=== PATIENT | male | born 1950 | race Caucasian/White ===

== ENCOUNTER → 2017-09-07 | Day surgery (SDC) | payer OTHER ==
[~2017-09-07] VITALS: Ht 167.6 cm; Wt 54.4 kg
[~2017-09-07] MED LIST: ACETAMINOPHEN325 M1 PO; ADULT LOW DOSE81 MG PO; ADVIL100 M2 PO; ASPIRIN81 M2 PO; CHANTIX1 MG PO; COZAAR 25 MG TA25 M1 PO; LIPITOR10 MG PO; LISINOPRIL20 MG PO; METOPROLOL SUCC50 MG PO; PEPCID20 MG PO; PLAVIX 75 MG TA75 MG PO; PRAVACHOL40 MG PO; PRAVASTATIN SOD20 MG PO; ZPAK PO
--- NOTE | ~2017-09-07 | PATH ---
[facility] [place] [address] PATHOLOGY RPT PROCEDURE Name: LAITH VILLARREAL Room #: REG [facility] M.R.#: [id number] Admission: 09/07/17 Date of : 46 Discharge: Report #: [id number] Path Case #: [id number] [facility] Accession Number: [id number] . 01 Material submitted: . PART A: DUODENUM BIOPSY PART B: GASTRITIS PART C: ASCENDING COLON POLYP BIOPSY PART D: SIGMOID COLON POLYP BIOPSY . 01 Clinical history: . Pre-OP DX: Abdominal pain, weight loss, positive cologuard, family HX colon cancer, anorexia Post-OP DX: Gastritis, colon polyps, diverticulosis . 02 Diagnosis: A. Small bowel, duodenum, rule out sprue, endoscopic biopsy: - No diagnostic abnormalities present. - Negative for villous blunting or increase in intraepithelial lymphocytes. . B. Gastric mucosa, gastritis, endoscopic biopsy: - Mild reactive gastropathy. - Negative for intestinal metaplasia or atrophy. - Negative for Helicobacter pylori (properly controlled immunohistochemical stain performed). . C. Polyp, ascending colon polyp, endoscopic biopsy: - Tubular adenoma. - Negative for high-grade dysplasia. . D. Polyp, sigmoid colon polyp, endoscopic biopsy: - Tubular adenoma. - Negative for high-grade dysplasia. (IUV:liyah; 09/08/2017) QMS/09/08/2017 . 02 Electronically signed: . Manuela Liz MD, Pathologist NPI- [id number] . 01 Gross description: . A. Received in formalin labeled "VillarrealWilfredy, duodenum, rule out sprue," are 4 segments of gerardo soft tissue measuring 1.3 x 0.8 x 0.2 cm in aggregate dimensions and ranging from 0.3 to 0.5 cm in maximum dimension. The specimen is submitted entirely in cassette A1. . [address] [address] PATHOLOGY RPT PROCEDURE Name: LAITH VILLARREAL [facility] [id number] Admission: 09/07/17 Date of : 46 Discharge: Report #: [id number] Path Case #: [id number] B. Received in formalin labeled "VillarrealWilfredy, gastritis, rule out H. pylori," are 2 segments of gerardo soft tissue measuring 1.0 x 0.3 x 0.3 cm in aggregate dimensions and measuring 0.5 cm each in maximum dimension. The specimen is submitted entirely in cassette B1. . C. Received in formalin labeled "Laith Villarreal, ascending colon polyp BX," is a single segment of gerardo soft tissue measuring 0.3 cm in maximum dimension. The specimen is entirely submitted in cassette C1. . D. Received in formalin labeled "Laith Villarreal, sigmoid colon polyp BX," is a single segment of gerardo soft tissue measuring 0.4 cm in maximum dimension. The specimen is entirely submitted in cassette D1. (TSD; 09/07/2017) TOB/TOB . 02 Microscopic: . . . 02 Pathologist provided ICD-10: K31.9, D12.2, D12.5 . 02 CPT . 412550, 668334, 150012, 914873, [id number] Performed at: [address] [id number] MD Marlon Reynoso MD Phone: [phone] Performed at: [address] [id number] MD Manuela Liz MD Phone: [phone]
--- NOTE | ~2017-09-07 | P ---
[facility] [address] [address] PROCEDURE REPORT Name: LAITH VILLARREAL Room #: REG [facility]..#: [id number] Admission: 09/07/17 Attend Phys: Tom Robertson Discharge: Date of : 46 Report #: [id number] THIS REPORT FOR: //name// CC: Graham Agee MD DATE OF SERVICE: 09/07/2017 PROCEDURE PERFORMED: Colonoscopy with biopsies. HISTORY OF PRESENT ILLNESS: The patient is a 67-year-old male with a history of recent Cologuard test being positive. He denies any obvious bright red blood per rectum or melena. He does have a family history of colon cancer in a brother diagnosed in his 50s. The patient has never had a colonoscopy before. PROCEDURE: The risks and benefits of the procedure were explained to the patient, those risks including, but not limited to bleeding, perforation, and the risk of sedation. He understood these risks and gave informed consent. Sedation was given using propofol per anesthesia. Next, a digital rectal exam was initially performed, which was normal. Next, using a standard Olympus colonoscope, the scope was placed in the patient's anus and advanced under direct vision to the cecum. The overall prep was excellent. The cecum and ileocecal valve were normal in appearance. Terminal ileum was intubated and normal in appearance. In the ascending colon, a 3-mm sessile polyp was noted. This was removed with cold forceps, otherwise normal. The transverse and descending colon were normal. Multiple diverticula were noted in the sigmoid colon. Also noted, there was a 5-mm sessile polyp. This was also removed with cold forceps. The rectal mucosa was normal. On retroflexion, no abnormalities were noted. The scope was then withdrawn and the procedure terminated. The patient tolerated the procedure well. IMPRESSION: 1. Two small colonic polyps. 2. Sigmoid diverticulosis. 3. Otherwise, normal colonoscopy. RECOMMENDATIONS: 1. Await biopsy results. 2. Repeat colonoscopy in 5 years. 3. If the patient has continued weight loss, consider CT scan of the abdomen and pelvis. [facility] [address] [place] [address] PROCEDURE REPORT Name: LAITH VILLARREAL Room #: REG [facility]..#: [id number] Admission: 09/07/17 Attend Phys: Tom Robertson Discharge: Date of : 46 Report #: [id number] Thank you for allowing me to participate in his care. By: 1221 1628 Kel Trujillo MD /nt
--- NOTE | ~2017-09-07 | P ---
[facility] [place] [address] [address] [place] [address] PROCEDURE REPORT Name: LAITH VILLARREAL Room #: REG [facility] M..#: [id number] Admission: 09/07/17 Attend Phys: Tom Robertson Discharge: Date of : 46 Report #: [id number] THIS REPORT FOR: //name// CC: Graham Agee MD DATE OF SERVICE: 09/07/2017 PROCEDURE PERFORMED: Upper endoscopy with biopsies. HISTORY OF PRESENT ILLNESS: The patient is a 67-year-old male who presents today for a colonoscopy. He has had weight loss, decreased appetite and a positive Cologuard test. He also has intermittent heartburn symptoms. He was placed on Pepcid recently, which has been helpful. We discussed proceeding with an upper endoscopy as well today due to his weight loss and other symptoms and he agreed. PROCEDURE: The risks and benefits of the procedure were explained to the patient, those risks including, but not limited to bleeding, perforation, and the risk of sedation. He understood these risks and gave informed consent. Sedation was given using propofol per anesthesia. Next, using a standard Olympus upper endoscope, the scope was placed in the patient's mouth and advanced under direct vision through the esophagus, stomach and into the second portion of the duodenum. The esophagus was normal throughout. The GE junction was normal. There was a mild diffuse gastritis. Biopsies were obtained to rule out H. pylori. The pylorus was normal and patent. The duodenal bulb, first and second portion were all normal. Due to the patient's symptoms, biopsies were obtained to rule out the possibility of celiac sprue. The scope was then withdrawn and the procedure terminated. The patient tolerated the procedure well. IMPRESSION: 1. Mild gastritis. 2. Otherwise, normal upper endoscopy. RECOMMENDATIONS: 1. Await biopsy results. 2. We will proceed with colonoscopy next today. Thank you for allowing me to participate in his care. By: 1150 1623 Kel Trujillo MD /nt
== END | disposition home or self-care (01) ==
LOC: GI 09:32
DX: D12.2 Benign neoplasm of ascending colon (principal); D12.5 Benign neoplasm of sigmoid colon; K31.9 Disease of stomach and duodenum, unspecified; Z80.0 Family history of malignant neoplasm of digestive organs; K57.30 Diverticulosis of large intestine without perforation or abscess without bleeding; F17.210 Nicotine dependence, cigarettes, uncomplicated; I10 Essential (primary) hypertension; E78.5 Hyperlipidemia, unspecified; G47.33 Obstructive sleep apnea (adult) (pediatric); K21.9 Gastro-esophageal reflux disease without esophagitis; Z98.890 Other specified postprocedural states

== ENCOUNTER → 2019-04-26 | Outpatient (CLI) | payer OTHER | LOC: SJCVC 10:28 | DX: I35.0 Nonrheumatic aortic (valve) stenosis (principal); I10 Essential (primary) hypertension; E78.5 Hyperlipidemia, unspecified; Z79.899 Other long term (current) drug therapy; G44.89 Other headache syndrome; J44.9 Chronic obstructive pulmonary disease, unspecified ==

== ENCOUNTER 2019-08-21 10:48 | Emergency (ER) | payer OTHER ==
[~2019-08-21] VITALS: Ht 170.2 cm; Wt 63.0 kg
[2019-08-21] MEDS ORDERED: MICARDIS40 MG PO (10:53)
[2019-08-21 11:33] LABS: ABSOLUTE NEUTROPHILS 4.6 thou/uL (1.4-8.2); BASOPHILS 0.6 % (0.0-2.0); EOSINOPHILS 0.6 % (0.0-3.0); HEMATOCRIT 44.3 % (42.0-52.0); HEMOGLOBIN 15.2 gm/dL (14.0-18.0); LYMPHOCYTES 22.4 % (24.0-44.0); MCH 32.3 pg (26.0-34.0); MCHC 34.3 g/dL (28.0-37.0); MONOCYTES 7.8 % (1.0-8.0); PLATELET COUNT 239 thou/uL (150-400); POLYS 68.6 % (36.0-66.0); RBC 4.71 mil/uL (4.50-6.00); WBC 6.8 thou/uL (4.0-11.0)
[2019-08-21 11:38] LABS: ANION GAP 8 mmol/L (7-16); BUN 15 mg/dL (7-18); CALCIUM 8.9 mg/dL (8.5-10.1); CHLORIDE 96 mmol/L (98-107); CO2 28 mmol/L (21-32); CREATININE 1.1 mg/dL (0.7-1.3); GLUCOSE 96 mg/dL (74-106); POTASSIUM 3.8 mmol/L (3.5-5.1); SODIUM 132 mmol/L (136-145)
[2019-08-21 11:48] LABS: SGOT 25 U/L (15-37); SGPT 25 U/L (30-65); TOTAL BILIRUBIN 0.7 mg/dL (0.2-1.0); TOTAL PROTEIN 7.2 g/dL (6.4-8.2); TROPONIN-I <0.06 ng/mL (<0.06)
[2019-08-21 12:49] LABS: URINE BILIRUBIN NEGATIVE (Negative); URINE BLOOD TRACE (Negative); URINE CLARITY CLEAR; URINE COLOR YELLOW; URINE GLUCOSE-RANDOM* NEGATIVE (Negative); URINE KETONES NEGATIVE (Negative); URINE LEUKOCYTES-REFLEX NEGATIVE (Negative); URINE NITRITE-REFLEX NEGATIVE (Negative); URINE PROTEIN (DIPSTICK) NEGATIVE (Negative); URINE UROBILINOGEN 0.2 E.U./dl (0.2-1.0)
[2019-08-21] MEDS ORDERED: BENICAR40 MG PO (14:06)
[2019-08-21 14:27] VITALS: BP 180/79
--- NOTE | 2019-08-22 07:21 | EKG ---
[facility] [address] [address] ELECTROCARDIOGRAM REPORT Name: LAITH VILLARREAL Room #: DEP [facility].#: [id number] Admission: 08/21/19 Attend Phys: Discharge: 08/21/19 Date of : 46 Report #: [id number] THIS REPORT FOR: cc: Graham Agee,Graham Huggins,Deuce Garcia MD [facility] THIS REPORT FOR: //name// [facility] ED Test Date: 2019-08-21 Test Time: 11:09:54 Pat Name: LAITH VILLARREAL Department: Room: Gender: Fur Sewer: MARIA A : 1950 Requested By: Percy aGrnica Order Number: [id number] MD: Deuce Vela Measurements Intervals [place] Rate: 55 P: 66 [place]: 158 QRS: 49 QRSD: 101 T: 70 QT: 435 QTc: 416 Interpretive Statements Sinus rhythm Abnormal R-wave progression, early transition Minimal ST depression, anterior leads No previous ECG available for comparison Electronically Signed On 08-22-2019 7:21:01 CDT by Deuce Vela [email or web address] <ELECTRONICALLY SIGNED> By: Deuce Vela MD, FACC 08/22/19 0721 1109 1109 Deuce Vela MD, [facility] /EPI
== END 2019-08-21 14:29 | disposition home or self-care (01) ==
LOC: ER 10:48
PROVIDERS: Emergency Medicine
DX: I10 Essential (primary) hypertension (principal); E78.5 Hyperlipidemia, unspecified; K21.9 Gastro-esophageal reflux disease without esophagitis; F17.210 Nicotine dependence, cigarettes, uncomplicated; Z88.1 Allergy status to other antibiotic agents; Z79.899 Other long term (current) drug therapy

== ENCOUNTER → 2019-09-04 | Outpatient (CLI) | payer OTHER ==
[~2019-09-04] MED LIST changes: +BENICAR40 MG PO; +MICARDIS40 MG PO
== END ==
LOC: MRI 07:18
PROVIDERS: ATTEND Neuromusculoskeletal Medicine & OMM
DX: G31.9 Degenerative disease of nervous system, unspecified (principal); R41.82 Altered mental status, unspecified; R90.82 White matter disease, unspecified; I67.82 Cerebral ischemia

== ENCOUNTER → 2019-10-25 | Outpatient (CLI) | payer OTHER | LOC: SJCVC 15:17 | PROVIDERS: ATTEND Internal Medicine | DX: I10 Essential (primary) hypertension (principal); I35.0 Nonrheumatic aortic (valve) stenosis; I73.9 Peripheral vascular disease, unspecified; F17.210 Nicotine dependence, cigarettes, uncomplicated; Z79.899 Other long term (current) drug therapy ==

== ENCOUNTER → 2019-11-23 | Outpatient (CLI) | payer OTHER | LOC: SJCVCIMAG 07:50 | PROVIDERS: ATTEND Internal Medicine | DX: I08.3 Combined rheumatic disorders of mitral, aortic and tricuspid valves (principal); I11.9 Hypertensive heart disease without heart failure; J44.9 Chronic obstructive pulmonary disease, unspecified; F17.200 Nicotine dependence, unspecified, uncomplicated; Z79.899 Other long term (current) drug therapy ==

== ENCOUNTER → 2020-10-31 | Outpatient (CLI) | payer OTHER | LOC: SJCVCIMAG 07:37 | PROVIDERS: ATTEND Internal Medicine | DX: I08.3 Combined rheumatic disorders of mitral, aortic and tricuspid valves (principal); E78.5 Hyperlipidemia, unspecified; I10 Essential (primary) hypertension; E78.00 Pure hypercholesterolemia, unspecified; K21.9 Gastro-esophageal reflux disease without esophagitis; J44.9 Chronic obstructive pulmonary disease, unspecified; I25.10 Atherosclerotic heart disease of native coronary artery without angina pectoris; F17.210 Nicotine dependence, cigarettes, uncomplicated; Z79.899 Other long term (current) drug therapy; Z82.49 Family history of ischemic heart disease and other diseases of the circulatory system; Z88.1 Allergy status to other antibiotic agents ==